=== PATIENT | male | born 1970 | race Caucasian/White ===

== ENCOUNTER 2018-07-05 19:37 | Inpatient (IN) ==
[2018-07-05] MEDS ORDERED: ONDANSETRON 4 MG/2 ML VIAL IV ONE (20:19)
[2018-07-05] MEDS ORDERED: PANTOPRAZOLE 40 MG VIAL IV STA (20:19)
[2018-07-05] MEDS ORDERED: MORPHINE 4 MG/1 ML VIAL IV STA (20:19)
[2018-07-05 21:15] LABS: Basophils % 0.4 % (0.0-0.8); Eosinophils % 0.1 % (0.00-10.9); Hematocrit 41.2 VOL% (42.0-52.0); Hemoglobin 13.5 GM/DL (14.0-18.0); Immature Granulocytes % 0.5 %; Immature Granulocytes Absolute 0.05 #; Lymphocytes # 0.7 10*3/uL (1.4-4.0); Lymphocytes % 6.9 % (21.2-54.2); Mean Corpuscular HGB Conc 32.8 GM/DL (32-36); Mean Corpuscular Volume 100.5 FL (87-102); Monocytes % 6.2 % (1.7-12.7); Neutrophils % 85.9 % (38.7-73.9); Platelet Count 255 T/CUMM (130-400); Red Cell Distribution Width 15.1 % (9.3-17.3); White Blood Count 9.4 T/CUMM (4-12)
[2018-07-05 21:41] LABS: Alanine Aminotransferase 51 U/L (16-61); Alkaline Phosphatase 96 U/L (45-117); Amylase 22 U/L (25-115); Aspartate Amino Transferase 45 U/L (0-37); Blood Urea Nitrogen 8 MG/DL (7-18); Calcium 9.4 MG/DL (8.5-10.1); Glucose 92 MG/DL (74-106); Osmolality,Calculated 265.2 MOS/KG (273-304); Total Protein 8.4 G/DL (6.4-8.3)
[2018-07-05] MEDS ORDERED: MEROPENEM 1,000 MG in SODIUM CHLORIDE 0.9% 100 ML IV STA (22:03)
[2018-07-05] MEDS ORDERED: SODIUM CHLORIDE 0.9% 1,000 ML IV STA (22:04)
[2018-07-05 23:10] LABS: Apearance,Urine CLEAR (Clear); Bilirubin,Urine Negative (Negative); Blood, Urine Negative (Negative); Glucose,Urine (UA) Negative (Negative); Ketones,Urine Negative (Negative); Mucus,Urine Occasional /LPF (Occasional); Nitrite,Urine Negative (Negative); Protein,Urine 30 MG/DL; RBC,Urine <1 /HPF (0-4); Urine Color Amber (Yellow); Urine Specific Gravity 1.034 (1.001-1.035); WBC,Urine 1 /HPF (0-6)
[2018-07-05 23:16] LABS: Barbiturates Screen,Urine Negative (Negative); Benzodiazepines Screen,Urine Negative (Negative); Cannabinoid Screen,Urine Positive (Negative); Opiate Screen,Urine Positive (Negative); Phencyclidine Screen,Urine Negative (Negative)
[2018-07-06] MEDS ORDERED: MORPHINE 4 MG/1 ML VIAL IV STA (00:10)
[2018-07-06] MEDS ORDERED: ACETAMINOPHEN 325 MG TABLET PO PRN (00:36)
[2018-07-06 01:02] LABS: INR 1.2; PT Patient Result 12.6 SECS; Partial Thromboplastin Time 27.3 SECS (0-40)
[2018-07-06] MEDS ORDERED: SODIUM CHLORIDE 0.9% 1,000 ML IV STA (01:11)
[2018-07-06] MEDS: metroNIDAZOLE INJ 500 MG in PREMIX 1 EACH IV SCH ×3 (03:06→19:09)
[2018-07-06] MEDS ORDERED: MORPHINE IR 15 MG TABLET PO PRN (04:07)
[2018-07-06 04:15] LABS: Basophils % 0.3 % (0.0-0.8); Hematocrit 37.9 VOL% (42.0-52.0); Hemoglobin 12.3 GM/DL (14.0-18.0); Immature Granulocytes % 0.5 %; Immature Granulocytes Absolute 0.06 #; Lymphocytes # 0.7 10*3/uL (1.4-4.0); Lymphocytes % 5.4 % (21.2-54.2); Mean Corpuscular HGB Conc 32.5 GM/DL (32-36); Mean Corpuscular Volume 101.6 FL (87-102); Mean Platelet Volume 10.3 FL (9.6-12.0); Neutrophils % 84.8 % (38.7-73.9); Platelet Count 264 T/CUMM (130-400); Red Blood Count 3.73 MC/CUMM (3.8-5.5); Red Cell Distribution Width 14.8 % (9.3-17.3); White Blood Count 12.2 T/CUMM (4-12)
[2018-07-06 04:35] LABS: Calcium 8.4 MG/DL (8.5-10.1); Osmolality,Calculated 264.4 MOS/KG (273-304)
[2018-07-06 04:57] LABS: Albumin 3.7 G/DL (3.4-5.0); Bilirubin,Direct 1.12 MG/DL (0.0-0.20); Bilirubin,Indirect 3.3 MG/DL (0.0-1.0); Bilirubin,Total 4.4 MG/DL (0.2-1.0); Total Protein 7.6 G/DL (6.4-8.3)
[2018-07-06 07:28] LABS: Hepatitis B Core IgM Quant 0.15 Index; Hepatitis B Surface Ag Quant < 0.10 Index; Hepatitis B Surface Ag Result Negative (Negative); Hepatitis C Virus Ab Quant 0.04 Index; Hepatitis C Virus Ab Result Negative (Negative)
[2018-07-06] MEDS: ALBUTEROL/IPRATROPIUM 3 ML NEB RESP TX SCH ×3 (08:15→20:06)
[2018-07-06] MEDS: THIAMINE 200 MG/2 ML VIAL IV SCH (09:00)
[2018-07-06] MEDS ORDERED: ENOXAPARIN 40 MG/0.4 ML SYRINGE SUBCUT SCH (09:00)
[2018-07-06] MEDS ORDERED: FOLIC ACID INJ 1 MG in SYRINGE 1 EACH IV SCH (09:00)
[2018-07-06] MEDS: PANTOPRAZOLE 40 MG VIAL IV SCH (09:00)
[2018-07-06] MEDS ORDERED: MORPHINE 4 MG/1 ML VIAL IV PRN ×2 (09:35→23:12)
[2018-07-06] MEDS ORDERED: ASPIRIN CHEW 81 MG TABLET PO ONE (11:35)
[2018-07-06] MEDS: HYDROmorphone 2 MG/1 ML VIAL IV PRN ×5 (11:57→23:26)
[2018-07-06] MEDS ORDERED: MAGNESIUM HYDROXIDE SUSP 30 ML UDCUP PO PRN (14:37)
[2018-07-06] MEDS ORDERED: ALUMINUM/MAGNES/SIMETH MAX STR 30 ML UDCUP PO PRN (14:37)
[2018-07-06] MEDS ORDERED: NITROGLYCERIN SL 0.4 MG TABLET SL PRN ×2 (14:38→23:12)
[2018-07-06] MEDS: ENOXAPARIN 120 MG/0.8 ML SYRINGE SUBCUT SCH (17:00)
[2018-07-06] MEDS: SODIUM CHLORIDE 0.9% 1,000 ML IV SCH ×2 (18:00→20:42)
[2018-07-06] MEDS: ONDANSETRON 4 MG/2 ML VIAL IV PRN (21:47)
[2018-07-06 23:21] LABS: Basophils % 0.2 % (0.0-0.8); Hemoglobin 11.9 GM/DL (14.0-18.0); Immature Granulocytes % 0.9 %; Immature Granulocytes Absolute 0.14 #; Lymphocytes # 0.6 10*3/uL (1.4-4.0); Lymphocytes % 3.9 % (21.2-54.2); Mean Corpuscular HGB Conc 31.3 GM/DL (32-36); Mean Corpuscular Volume 104.7 FL (87-102); Mean Platelet Volume 10.2 FL (9.6-12.0); Monocytes % 7.6 % (1.7-12.7); Neutrophils % 87.4 % (38.7-73.9); Platelet Count 226 T/CUMM (130-400); Red Blood Count 3.63 MC/CUMM (3.8-5.5); Red Cell Distribution Width 14.8 % (9.3-17.3)
[2018-07-06 23:41] LABS: Albumin 3.6 G/DL (3.4-5.0); Bilirubin,Total 7.3 MG/DL (0.2-1.0); Calcium 8.7 MG/DL (8.5-10.1); Osmolality,Calculated 263.7 MOS/KG (273-304)
[2018-07-07] MEDS: LEVOFLOXACIN INJ 750 MG in PREMIX 1 EACH IV SCH ×2 (00:33→01:51)
[2018-07-07] MEDS: THIAMINE 200 MG/2 ML VIAL IV SCH (00:34)
[2018-07-07 00:53] LABS: Band Neutrophils 2 % (0-10); Lymphocytes 1 % (20-55); Myelocytes 2 %; Platelet Estimate Adequate; Polychromasia Slight; Segmented Neutrophils 92 % (50-85); Total Cells Counted 100
[2018-07-07] MEDS: ONDANSETRON 4 MG/2 ML VIAL IV PRN ×5 (01:48→23:07)
[2018-07-07] MEDS: HYDROmorphone 2 MG/1 ML VIAL IV PRN ×7 (01:50→23:08)
[2018-07-07] MEDS: ALBUTEROL/IPRATROPIUM 3 ML NEB RESP TX SCH ×4 (02:49→18:50)
[2018-07-07] MEDS: metroNIDAZOLE INJ 500 MG in PREMIX 1 EACH IV SCH ×3 (03:40→18:38)
[2018-07-07 04:25] LABS: Basophils % 0.1 % (0.0-0.8); Hemoglobin 11.4 GM/DL (14.0-18.0); Immature Granulocytes % 0.9 %; Immature Granulocytes Absolute 0.14 #; Lymphocytes # 0.6 10*3/uL (1.4-4.0); Lymphocytes % 3.9 % (21.2-54.2); Mean Corpuscular HGB Conc 31.7 GM/DL (32-36); Mean Corpuscular Volume 103.2 FL (87-102); Mean Platelet Volume 10.5 FL (9.6-12.0); Monocytes % 7.3 % (1.7-12.7); Neutrophils % 87.8 % (38.7-73.9); Platelet Count 244 T/CUMM (130-400); Red Blood Count 3.49 MC/CUMM (3.8-5.5); Red Cell Distribution Width 14.7 % (9.3-17.3); White Blood Count 15.1 T/CUMM (4-12)
[2018-07-07 04:54] LABS: Albumin 3.5 G/DL (3.4-5.0); Bilirubin,Total 7.7 MG/DL (0.2-1.0); Calcium 8.6 MG/DL (8.5-10.1); Osmolality,Calculated 261.9 MOS/KG (273-304); Risk Ratio 3.58; Thyroid Stimulating Hormone 3.67 uIU/ml (0.358-3.74); Total Protein 7.8 G/DL (6.4-8.3); VLDL CHOLESTEROL 14.4 MG/DL
[2018-07-07 05:01] LABS: Troponin I 0.155 NG/ML (0.00-0.045)
[2018-07-07 05:04] LABS: Lymphocytes 4 % (20-55); Platelet Estimate Normal; Polychromasia Few; Segmented Neutrophils 92 % (50-85); Total Cells Counted 100
[2018-07-07] MEDS: ENOXAPARIN 120 MG/0.8 ML SYRINGE SUBCUT SCH (05:10)
[2018-07-07] MEDS: PANTOPRAZOLE 40 MG VIAL IV SCH (08:10)
[2018-07-07] MEDS ORDERED: FUROSEMIDE 20 MG/2 ML VIAL IV ONE (09:54)
[2018-07-07] MEDS: CARVEDILOL 3.125 MG TABLET PO SCH ×4 (10:15→23:40)
[2018-07-07] MEDS: ASPIRIN 325 MG TABLET PO SCH (10:26)
[2018-07-07] MEDS: THIAMINE 100 MG TABLET PO SCH (10:26)
[2018-07-07] MEDS: FOLIC ACID 1 MG TABLET PO SCH (10:26)
[2018-07-07] MEDS: SODIUM CHLORIDE 0.9% 1,000 ML IV SCH (11:06)
[2018-07-07 11:17] LABS: Basophils % 0.1 % (0.0-0.8); Hematocrit 36.3 VOL% (42.0-52.0); Hemoglobin 11.4 GM/DL (14.0-18.0); Immature Granulocytes % 0.7 %; Lymphocytes # 0.6 10*3/uL (1.4-4.0); Lymphocytes % 3.7 % (21.2-54.2); Mean Corpuscular HGB Conc 31.4 GM/DL (32-36); Mean Corpuscular Volume 104.9 FL (87-102); Mean Platelet Volume 10.1 FL (9.6-12.0); Monocytes % 8.9 % (1.7-12.7); Neutrophils % 86.6 % (38.7-73.9); Platelet Count 241 T/CUMM (130-400); Red Blood Count 3.46 MC/CUMM (3.8-5.5); Red Cell Distribution Width 14.6 % (9.3-17.3); White Blood Count 14.8 T/CUMM (4-12)
[2018-07-07 11:38] LABS: % Iron Saturation 4.2 % (18-50); Ferritin 432.2 ng/ml (26-388)
[2018-07-07 11:39] LABS: Band Neutrophils 2 % (0-10); Hypochromasia 1+; Lymphocytes 4 % (20-55); Platelet Estimate Adequate; Segmented Neutrophils 83 % (50-85); Total Cells Counted 100
[2018-07-07 11:47] LABS: Vitamin B12 1771 PG/ML (211-911)
[2018-07-07 12:21] LABS: Sedimentation Rate-Westergren 58 MM/HR (0-15)
[2018-07-07] MEDS ORDERED: ALBUTEROL/IPRATROPIUM 3 ML NEB RESP TX PRN (14:35)
[2018-07-07] MEDS: oxyCODONE/ACETAMINOPHEN 5-325 MG TABLET PO PRN (15:25)
[2018-07-07] MEDS ORDERED: ZALEPLON 5 MG CAPSULE PO PRN (16:33)
[2018-07-08] MEDS: ALBUTEROL/IPRATROPIUM 3 ML NEB RESP TX SCH ×4 (00:52→18:30)
[2018-07-08] MEDS: LEVOFLOXACIN INJ 750 MG in PREMIX 1 EACH IV SCH (01:10)
[2018-07-08] MEDS: metroNIDAZOLE INJ 500 MG in PREMIX 1 EACH IV SCH ×3 (02:37→19:10)
[2018-07-08] MEDS: oxyCODONE/ACETAMINOPHEN 5-325 MG TABLET PO PRN ×2 (03:38→23:12)
[2018-07-08 04:21] LABS: Basophils % 0.3 % (0.0-0.8); Eosinophils % 0.1 % (0.00-10.9); Hematocrit 36.5 VOL% (42.0-52.0); Hemoglobin 11.3 GM/DL (14.0-18.0); Immature Granulocytes % 0.4 %; Immature Granulocytes Absolute 0.05 #; Lymphocytes # 0.8 10*3/uL (1.4-4.0); Lymphocytes % 6.8 % (21.2-54.2); Mean Corpuscular Volume 104.3 FL (87-102); Mean Platelet Volume 10.1 FL (9.6-12.0); Monocytes % 9.5 % (1.7-12.7); Neutrophils % 82.9 % (38.7-73.9); Platelet Count 253 T/CUMM (130-400); Red Cell Distribution Width 14.4 % (9.3-17.3); White Blood Count 11.2 T/CUMM (4-12)
[2018-07-08 04:49] LABS: Calcium 9.1 MG/DL (8.5-10.1); Osmolality,Calculated 262.1 MOS/KG (273-304)
[2018-07-08] MEDS: CARVEDILOL 3.125 MG TABLET PO SCH ×4 (05:50→23:14)
[2018-07-08] MEDS: HYDROmorphone 2 MG/1 ML VIAL IV PRN ×2 (05:56→20:29)
[2018-07-08] MEDS: ONDANSETRON 4 MG/2 ML VIAL IV PRN ×3 (05:56→20:30)
[2018-07-08 09:17] LABS: Hemoglobin A1 (Alkaline) 97.2 % (96.5-98.5); Hemoglobin A2 (Alkaline) 2.8 % (1.5-3.5)
[2018-07-08] MEDS: ASPIRIN 325 MG TABLET PO SCH (09:22)
[2018-07-08] MEDS: THIAMINE 100 MG TABLET PO SCH (09:22)
[2018-07-08] MEDS: PANTOPRAZOLE 40 MG VIAL IV SCH (09:22)
[2018-07-08] MEDS: FOLIC ACID 1 MG TABLET PO SCH (09:22)
[2018-07-08 11:07] LABS: Albumin 3.2 G/DL (3.4-5.0); Bilirubin,Direct 4.64 MG/DL (0.0-0.20); Bilirubin,Indirect 3.4 MG/DL (0.0-1.0); Total Protein 7.4 G/DL (6.4-8.3)
[2018-07-08] MEDS: PROMETHAZINE INJ 12.5 MG in SODIUM CHLORIDE 0.9% 50 ML IV PRN (14:30)
[2018-07-08] MEDS: ENOXAPARIN 120 MG/0.8 ML SYRINGE SUBCUT SCH (15:37)
[2018-07-09] MEDS: ALBUTEROL/IPRATROPIUM 3 ML NEB RESP TX SCH ×4 (00:10→20:38)
[2018-07-09] MEDS: LEVOFLOXACIN INJ 750 MG in PREMIX 1 EACH IV SCH (01:23)
[2018-07-09] MEDS: HYDROmorphone 2 MG/1 ML VIAL IV PRN (03:09)
[2018-07-09] MEDS: ONDANSETRON 4 MG/2 ML VIAL IV PRN ×3 (03:10→14:37)
[2018-07-09] MEDS: ENOXAPARIN 120 MG/0.8 ML SYRINGE SUBCUT SCH ×2 (03:11→15:40)
[2018-07-09] MEDS: metroNIDAZOLE INJ 500 MG in PREMIX 1 EACH IV SCH ×2 (03:12→11:18)
[2018-07-09 04:19] LABS: Apearance,Urine CLEAR (Clear); Bilirubin,Urine Negative (Negative); Blood, Urine Negative (Negative); Glucose,Urine (UA) Negative (Negative); Hyaline Casts,Urine 4 /LPF (0-3); Ketones,Urine Negative (Negative); Mucus,Urine Occasional /LPF (Occasional); Nitrite,Urine Negative (Negative); Protein,Urine Negative; RBC,Urine 1 /HPF (0-4); Renal Epithelial Cells,Urine Occasional /HPF (<1); Squamous Epithelial Cell,Urine Occasional /HPF (0-10); Urine Color Amber (Yellow); Urine Specific Gravity 1.025 (1.001-1.035); WBC,Urine 3 /HPF (0-6)
[2018-07-09 04:48] LABS: Basophils % 0.4 % (0.0-0.8); Hematocrit 33.8 VOL% (42.0-52.0); Hemoglobin 10.8 GM/DL (14.0-18.0); Immature Granulocytes % 0.4 %; Immature Granulocytes Absolute 0.03 #; Lymphocytes # 0.8 10*3/uL (1.4-4.0); Mean Corpuscular Volume 100.9 FL (87-102); Mean Platelet Volume 10.5 FL (9.6-12.0); Monocytes % 7.8 % (1.7-12.7); Neutrophils % 82.4 % (38.7-73.9); Platelet Count 276 T/CUMM (130-400); Red Blood Count 3.35 MC/CUMM (3.8-5.5); Red Cell Distribution Width 14.2 % (9.3-17.3); White Blood Count 8.6 T/CUMM (4-12)
[2018-07-09 04:58] LABS: Bilirubin,Direct 4.31 MG/DL (0.0-0.20); Bilirubin,Indirect 2.8 MG/DL (0.0-1.0); Bilirubin,Total 7.1 MG/DL (0.2-1.0); Total Protein 6.9 G/DL (6.4-8.3)
[2018-07-09 05:03] LABS: Bilirubin,Total 7.3 MG/DL (0.2-1.0); Calcium 8.9 MG/DL (8.5-10.1); Osmolality,Calculated 269.7 MOS/KG (273-304); Total Protein 6.8 G/DL (6.4-8.3)
[2018-07-09] MEDS: CARVEDILOL 3.125 MG TABLET PO SCH ×3 (05:13→17:37)
[2018-07-09] MEDS: oxyCODONE/ACETAMINOPHEN 5-325 MG TABLET PO PRN ×2 (09:48→21:20)
[2018-07-09] MEDS: ASPIRIN 325 MG TABLET PO SCH (09:49)
[2018-07-09] MEDS: PANTOPRAZOLE 40 MG VIAL IV SCH (09:49)
[2018-07-09] MEDS: FOLIC ACID 1 MG TABLET PO SCH (09:49)
[2018-07-09] MEDS: THIAMINE 100 MG TABLET PO SCH (09:49)
[2018-07-09 13:22] LABS: Mitochondrial Antibody (M2) <0.1 U
[2018-07-09] MEDS: PROMETHAZINE INJ 12.5 MG in SODIUM CHLORIDE 0.9% 50 ML IV PRN (18:30)
[2018-07-10] MEDS: HYDROmorphone 2 MG/1 ML VIAL IV PRN ×3 (00:22→17:59)
[2018-07-10] MEDS: CARVEDILOL 3.125 MG TABLET PO SCH ×4 (00:23→18:15)
[2018-07-10] MEDS: ALBUTEROL/IPRATROPIUM 3 ML NEB RESP TX SCH ×4 (00:47→18:58)
[2018-07-10] MEDS: LEVOFLOXACIN INJ 750 MG in PREMIX 1 EACH IV SCH (01:00)
[2018-07-10] MEDS: ENOXAPARIN 80 MG/0.8 ML SYRINGE SUBCUT SCH (03:17)
[2018-07-10 05:41] LABS: Basophils % 0.4 % (0.0-0.8); Eosinophils % 0.1 % (0.00-10.9); Hematocrit 34.5 VOL% (42.0-52.0); Hemoglobin 11.2 GM/DL (14.0-18.0); Immature Granulocytes % 0.6 %; Immature Granulocytes Absolute 0.05 #; Lymphocytes # 0.7 10*3/uL (1.4-4.0); Lymphocytes % 8.2 % (21.2-54.2); Mean Corpuscular HGB Conc 32.5 GM/DL (32-36); Mean Corpuscular Volume 99.4 FL (87-102); Monocytes % 11.5 % (1.7-12.7); Neutrophils % 79.2 % (38.7-73.9); Platelet Count 268 T/CUMM (130-400); Red Blood Count 3.47 MC/CUMM (3.8-5.5); Red Cell Distribution Width 14.6 % (9.3-17.3); White Blood Count 7.9 T/CUMM (4-12)
[2018-07-10 06:03] LABS: Albumin 2.8 G/DL (3.4-5.0); Bilirubin,Direct 5.05 MG/DL (0.0-0.20); Bilirubin,Indirect 3.1 MG/DL (0.0-1.0); Bilirubin,Total 8.1 MG/DL (0.2-1.0); Total Protein 6.5 G/DL (6.4-8.3)
[2018-07-10 06:05] LABS: Albumin 2.8 G/DL (3.4-5.0); Osmolality,Calculated 266.8 MOS/KG (273-304); Total Protein 6.6 G/DL (6.4-8.3)
[2018-07-10] MEDS: PROMETHAZINE INJ 12.5 MG in SODIUM CHLORIDE 0.9% 50 ML IV PRN (06:19)
[2018-07-10] MEDS: POLYETHYLENE GLYCOL POWDER 17 GM PACK PO SCH (09:13)
[2018-07-10] MEDS: PANTOPRAZOLE 40 MG VIAL IV SCH (09:13)
[2018-07-10] MEDS: ASPIRIN 325 MG TABLET PO SCH (09:13)
[2018-07-10] MEDS: THIAMINE 100 MG TABLET PO SCH (09:13)
[2018-07-10] MEDS: FOLIC ACID 1 MG TABLET PO SCH (09:13)
[2018-07-10] MEDS ORDERED: ALUM/MAG/SIMETH/LIDO VISC 1:1 30 ML BOTTLE PO ONE (11:19)
[2018-07-10] MEDS: ONDANSETRON 4 MG/2 ML VIAL IV PRN (18:15)
[2018-07-10] MEDS: oxyCODONE/ACETAMINOPHEN 5-325 MG TABLET PO PRN (23:07)
[2018-07-11] MEDS: LEVOFLOXACIN INJ 750 MG in PREMIX 1 EACH IV SCH (00:43)
[2018-07-11] MEDS: CARVEDILOL 3.125 MG TABLET PO SCH ×4 (00:43→17:21)
[2018-07-11] MEDS: HYDROmorphone 2 MG/1 ML VIAL IV PRN (00:47)
[2018-07-11] MEDS: ALBUTEROL/IPRATROPIUM 3 ML NEB RESP TX SCH ×4 (00:54→19:02)
[2018-07-11 05:05] LABS: Basophils % 0.4 % (0.0-0.8); Eosinophils % 0.2 % (0.00-10.9); Hemoglobin 11.5 GM/DL (14.0-18.0); Immature Granulocytes % 0.5 %; Immature Granulocytes Absolute 0.04 #; Lymphocytes # 0.9 10*3/uL (1.4-4.0); Lymphocytes % 10.6 % (21.2-54.2); Mean Corpuscular HGB Conc 32.9 GM/DL (32-36); Mean Corpuscular Volume 98.9 FL (87-102); Mean Platelet Volume 10.4 FL (9.6-12.0); Monocytes % 10.5 % (1.7-12.7); Neutrophils % 77.8 % (38.7-73.9); Platelet Count 280 T/CUMM (130-400); Red Blood Count 3.54 MC/CUMM (3.8-5.5); Red Cell Distribution Width 14.6 % (9.3-17.3); White Blood Count 8.4 T/CUMM (4-12)
[2018-07-11 05:21] LABS: Calcium 8.8 MG/DL (8.5-10.1); Osmolality,Calculated 264.9 MOS/KG (273-304)
[2018-07-11 05:29] LABS: Albumin 2.7 G/DL (3.4-5.0); Bilirubin,Direct 5.24 MG/DL (0.0-0.20); Bilirubin,Indirect 3.4 MG/DL (0.0-1.0); Bilirubin,Total 8.6 MG/DL (0.2-1.0); Total Protein 6.5 G/DL (6.4-8.3)
[2018-07-11] MEDS ORDERED: LACTATED RINGERS 500 ML IV SCH (08:00)
[2018-07-11] MEDS: PANTOPRAZOLE 40 MG VIAL IV SCH (08:43)
[2018-07-11] MEDS: THIAMINE 100 MG TABLET PO SCH (09:44)
[2018-07-11] MEDS: ASPIRIN 325 MG TABLET PO SCH (09:44)
[2018-07-11] MEDS: FOLIC ACID 1 MG TABLET PO SCH (09:44)
[2018-07-11] MEDS: POLYETHYLENE GLYCOL POWDER 17 GM PACK PO SCH (09:44)
[2018-07-11] MEDS ORDERED: ETOMIDATE 40 MG/20 ML VIAL IV ONE (10:00)
[2018-07-11] MEDS ORDERED: PROPOFOL 200 MG/20 ML VIAL IV ONE (10:00)
[2018-07-11] MEDS ORDERED: LIDOCAINE 2% 5 ML VIAL ONE (10:00)
[2018-07-11] MEDS: ONDANSETRON 4 MG/2 ML VIAL IV PRN ×2 (12:34→19:30)
[2018-07-11] MEDS: prednisoLONE 5 MG TABLET PO SCH (13:29)
[2018-07-11] MEDS: PROMETHAZINE INJ 12.5 MG in SODIUM CHLORIDE 0.9% 50 ML IV PRN (21:39)
[2018-07-12] MEDS: ALBUTEROL/IPRATROPIUM 3 ML NEB RESP TX SCH ×4 (00:09→19:01)
[2018-07-12] MEDS: CARVEDILOL 3.125 MG TABLET PO SCH ×4 (00:21→18:46)
[2018-07-12] MEDS: LEVOFLOXACIN INJ 750 MG in PREMIX 1 EACH IV SCH ×2 (00:23→07:01)
[2018-07-12] MEDS: oxyCODONE/ACETAMINOPHEN 5-325 MG TABLET PO PRN ×2 (03:24→17:42)
[2018-07-12 05:39] LABS: Calcium 8.6 MG/DL (8.5-10.1); Osmolality,Calculated 264.9 MOS/KG (273-304)
[2018-07-12 05:46] LABS: Albumin 2.7 G/DL (3.4-5.0); Bilirubin,Direct 5.27 MG/DL (0.0-0.20); Bilirubin,Indirect 2.5 MG/DL (0.0-1.0); Bilirubin,Total 7.8 MG/DL (0.2-1.0); Total Protein 6.4 G/DL (6.4-8.3)
[2018-07-12] MEDS: THIAMINE 100 MG TABLET PO SCH (09:36)
[2018-07-12] MEDS: ONDANSETRON 4 MG/2 ML VIAL IV PRN (09:36)
[2018-07-12] MEDS: ASPIRIN 325 MG TABLET PO SCH (09:36)
[2018-07-12] MEDS: PANTOPRAZOLE 40 MG VIAL IV SCH (09:36)
[2018-07-12] MEDS: FOLIC ACID 1 MG TABLET PO SCH (09:36)
[2018-07-12] MEDS: POLYETHYLENE GLYCOL POWDER 17 GM PACK PO SCH (09:37)
[2018-07-12] MEDS: prednisoLONE 5 MG TABLET PO SCH (09:37)
[2018-07-12] MEDS: PROMETHAZINE INJ 12.5 MG in SODIUM CHLORIDE 0.9% 50 ML IV PRN ×2 (11:33→18:42)
[2018-07-12] MEDS: LORazepam 2 MG/1 ML VIAL IV PRN (11:42)
[2018-07-12] MEDS ORDERED: FUROSEMIDE 20 MG/2 ML VIAL IV ONE (14:14)
[2018-07-12] MEDS: ENOXAPARIN 80 MG/0.8 ML SYRINGE SUBCUT SCH (14:40)
[2018-07-12] MEDS ORDERED: PROMETHAZINE INJ 25 MG in SODIUM CHLORIDE 0.9% 50 ML IV PRN (20:01)
[2018-07-13] MEDS: oxyCODONE/ACETAMINOPHEN 5-325 MG TABLET PO PRN ×2 (00:36→11:55)
[2018-07-13] MEDS: CARVEDILOL 3.125 MG TABLET PO SCH ×4 (00:36→17:49)
[2018-07-13] MEDS: LORazepam 2 MG/1 ML VIAL IV PRN (00:38)
[2018-07-13] MEDS: ALBUTEROL/IPRATROPIUM 3 ML NEB RESP TX SCH ×4 (01:05→20:34)
[2018-07-13] MEDS: ENOXAPARIN 80 MG/0.8 ML SYRINGE SUBCUT SCH ×2 (03:05→15:30)
[2018-07-13] MEDS: LEVOFLOXACIN INJ 750 MG in PREMIX 1 EACH IV SCH (03:07)
[2018-07-13 05:19] LABS: Calcium 8.4 MG/DL (8.5-10.1); Osmolality,Calculated 269.8 MOS/KG (273-304)
[2018-07-13 05:33] LABS: Albumin 2.6 G/DL (3.4-5.0); Bilirubin,Direct 4.52 MG/DL (0.0-0.20); Bilirubin,Indirect 2.2 MG/DL (0.0-1.0); Bilirubin,Total 6.7 MG/DL (0.2-1.0); Total Protein 5.9 G/DL (6.4-8.3)
[2018-07-13] MEDS: PANTOPRAZOLE 40 MG VIAL IV SCH (10:01)
[2018-07-13] MEDS: POLYETHYLENE GLYCOL POWDER 17 GM PACK PO SCH ×2 (10:02→10:10)
[2018-07-13] MEDS: prednisoLONE 5 MG TABLET PO SCH (10:02)
[2018-07-13] MEDS: THIAMINE 100 MG TABLET PO SCH (10:02)
[2018-07-13] MEDS: FOLIC ACID 1 MG TABLET PO SCH (10:02)
[2018-07-13] MEDS: ASPIRIN 325 MG TABLET PO SCH (10:02)
[2018-07-13] MEDS ORDERED: FUROSEMIDE 20 MG/2 ML VIAL IV ONE (15:49)
[2018-07-14] MEDS: CARVEDILOL 3.125 MG TABLET PO SCH ×4 (00:08→18:18)
[2018-07-14] MEDS: ENOXAPARIN 80 MG/0.8 ML SYRINGE SUBCUT SCH ×2 (02:11→16:38)
[2018-07-14] MEDS: oxyCODONE/ACETAMINOPHEN 5-325 MG TABLET PO PRN (02:12)
[2018-07-14] MEDS: ALBUTEROL/IPRATROPIUM 3 ML NEB RESP TX SCH ×4 (02:18→19:44)
[2018-07-14 05:41] LABS: Calcium 8.4 MG/DL (8.5-10.1); Osmolality,Calculated 269.9 MOS/KG (273-304)
[2018-07-14 05:45] LABS: Albumin 2.8 G/DL (3.4-5.0); Bilirubin,Direct 4.11 MG/DL (0.0-0.20); Bilirubin,Indirect 2.3 MG/DL (0.0-1.0); Bilirubin,Total 6.4 MG/DL (0.2-1.0); Total Protein 6.5 G/DL (6.4-8.3)
[2018-07-14] MEDS: ASPIRIN 325 MG TABLET PO SCH (10:32)
[2018-07-14] MEDS: FOLIC ACID 1 MG TABLET PO SCH (10:32)
[2018-07-14] MEDS: THIAMINE 100 MG TABLET PO SCH (10:32)
[2018-07-14] MEDS: prednisoLONE 5 MG TABLET PO SCH (10:34)
[2018-07-14] MEDS: PANTOPRAZOLE 40 MG VIAL IV SCH (10:36)
[2018-07-14] MEDS: POLYETHYLENE GLYCOL POWDER 17 GM PACK PO SCH (10:36)
[2018-07-14] MEDS: ONDANSETRON 4 MG/2 ML VIAL IV PRN (13:23)
[2018-07-15] MEDS: CARVEDILOL 3.125 MG TABLET PO SCH ×2 (00:25→05:53)
[2018-07-15] MEDS: CARVEDILOL 6.25 MG TABLET PO SCH ×4 (00:30→22:52)
[2018-07-15] MEDS: ALBUTEROL/IPRATROPIUM 3 ML NEB RESP TX SCH ×4 (00:44→20:02)
[2018-07-15] MEDS: ENOXAPARIN 80 MG/0.8 ML SYRINGE SUBCUT SCH ×2 (03:24→14:45)
[2018-07-15 05:29] LABS: Basophils % 0.1 % (0.0-0.8); Hematocrit 34.3 VOL% (42.0-52.0); Hemoglobin 11.2 GM/DL (14.0-18.0); Immature Granulocytes % 0.9 %; Immature Granulocytes Absolute 0.06 #; Lymphocytes # 0.7 10*3/uL (1.4-4.0); Lymphocytes % 10.4 % (21.2-54.2); Mean Corpuscular HGB Conc 32.7 GM/DL (32-36); Mean Corpuscular Volume 98.8 FL (87-102); Mean Platelet Volume 10.3 FL (9.6-12.0); Monocytes % 8.9 % (1.7-12.7); NRBC # 0.04 10*3/uL; Neutrophils % 79.7 % (38.7-73.9); Platelet Count 188 T/CUMM (130-400); Red Blood Count 3.47 MC/CUMM (3.8-5.5); White Blood Count 6.8 T/CUMM (4-12)
[2018-07-15 06:01] LABS: Calcium 8.7 MG/DL (8.5-10.1); Osmolality,Calculated 266.9 MOS/KG (273-304)
[2018-07-15 06:05] LABS: Albumin 2.8 G/DL (3.4-5.0); Bilirubin,Direct 3.57 MG/DL (0.0-0.20); Bilirubin,Indirect 2.1 MG/DL (0.0-1.0); Bilirubin,Total 5.7 MG/DL (0.2-1.0); Total Protein 6.4 G/DL (6.4-8.3)
[2018-07-15] MEDS: THIAMINE 100 MG TABLET PO SCH (11:37)
[2018-07-15] MEDS: FOLIC ACID 1 MG TABLET PO SCH (11:37)
[2018-07-15] MEDS: ASPIRIN 325 MG TABLET PO SCH (11:37)
[2018-07-15] MEDS: prednisoLONE 5 MG TABLET PO SCH (11:38)
[2018-07-15] MEDS: PANTOPRAZOLE 40 MG VIAL IV SCH (11:44)
[2018-07-15] MEDS: POLYETHYLENE GLYCOL POWDER 17 GM PACK PO SCH (11:44)
[2018-07-15] MEDS: ONDANSETRON 4 MG/2 ML VIAL IV PRN (17:32)
[2018-07-15] MEDS ORDERED: ENALAPRIL 5 MG TABLET PO ONE (20:11)
[2018-07-15] MEDS: oxyCODONE/ACETAMINOPHEN 5-325 MG TABLET PO PRN (23:39)
[2018-07-16] MEDS: ALBUTEROL/IPRATROPIUM 3 ML NEB RESP TX SCH ×3 (00:25→12:20)
[2018-07-16] MEDS: CARVEDILOL 6.25 MG TABLET PO SCH ×2 (04:49→11:41)
[2018-07-16 05:27] LABS: Basophils % 0.1 % (0.0-0.8); Hematocrit 33.2 VOL% (42.0-52.0); Hemoglobin 10.9 GM/DL (14.0-18.0); Immature Granulocytes % 0.8 %; Immature Granulocytes Absolute 0.06 #; Lymphocytes # 0.8 10*3/uL (1.4-4.0); Lymphocytes % 11.1 % (21.2-54.2); Mean Corpuscular HGB Conc 32.8 GM/DL (32-36); Mean Corpuscular Volume 99.4 FL (87-102); Mean Platelet Volume 10.6 FL (9.6-12.0); Monocytes % 9.6 % (1.7-12.7); NRBC # 0.08 10*3/uL; Neutrophils % 78.4 % (38.7-73.9); Platelet Count 158 T/CUMM (130-400); Red Blood Count 3.34 MC/CUMM (3.8-5.5); Red Cell Distribution Width 16.3 % (9.3-17.3); White Blood Count 7.2 T/CUMM (4-12)
[2018-07-16 05:28] LABS: Calcium 8.5 MG/DL (8.5-10.1); Osmolality,Calculated 267.7 MOS/KG (273-304)
[2018-07-16 08:54] LABS: Albumin 2.7 G/DL (3.4-5.0); Bilirubin,Direct 2.94 MG/DL (0.0-0.20); Bilirubin,Indirect 1.9 MG/DL (0.0-1.0); Bilirubin,Total 4.8 MG/DL (0.2-1.0); Total Protein 6.3 G/DL (6.4-8.3)
[2018-07-16] MEDS ORDERED: ENALAPRIL 5 MG TABLET PO SCH (09:00)
[2018-07-16] MEDS ORDERED: ENOXAPARIN 80 MG/0.8 ML SYRINGE SUBCUT SCH (09:00)
[2018-07-16] MEDS: POLYETHYLENE GLYCOL POWDER 17 GM PACK PO SCH (09:28)
[2018-07-16] MEDS: ASPIRIN 325 MG TABLET PO SCH (09:29)
[2018-07-16] MEDS: THIAMINE 100 MG TABLET PO SCH (09:29)
[2018-07-16] MEDS: prednisoLONE 5 MG TABLET PO SCH (09:29)
[2018-07-16] MEDS: FOLIC ACID 1 MG TABLET PO SCH (09:29)
[2018-07-16] MEDS: PANTOPRAZOLE 40 MG VIAL IV SCH (09:30)
[2018-07-16] MEDS ORDERED: FUROSEMIDE 40 MG TABLET PO SCH (14:00)
[2018-07-16 16:57] VITALS: BP 105/71
== END 2018-07-16 16:58 | disposition home or self-care (01) | DRG 441 ==
LOC: N.ED 19:37 → SUATTDRO 07-06 00:36 → N.EDINP 07-06 00:36 → N.5E 07-06 01:18 → N.3E 07-06 02:27
PROVIDERS: ADMIT Internal Medicine; ATTEND Hospitalist